=== PATIENT | female | born 1970 | race Caucasian/White ===

== ENCOUNTER 2018-03-22 09:13 | Emergency (ER) | payer BC ==
--- NOTE | 2018-03-22 10:44 | ED ---
Lower Extremity - HPI Summary HPI Summary: Pt. is a 47 y.o male who presents to the ER for a right foot injury that occurred last evening. Pt. state she was walking up stairs when she tripped backwards and all her weight landed onto right heel. Symptoms are mild in severity. Walking makes symptoms worse. Rest makes symptoms better. - History of Current Complaint Chief Complaint: EDExtremityLower Stated Complaint: RT FOOT INJURY Time Seen by Provider: 03/22/18 09:44 Hx Obtained From: Patient Hx Last Menstrual Period: 08/23/15 Pain Intensity: 10 - Allergies/Home Medications Allergies/Adverse Reactions: Allergies Allergy/AdvReac Type Severity Reaction Status Date / Time No Known Allergies Allergy Verified 03/22/18 09:27 PMH/Surg Hx/FS Hx/Imm Hx Previously Healthy: Yes - Cancer History Hx Chemotherapy: No Hx Radiation Therapy: No - Immunization History Immunizations Up to Date: Yes Infectious Disease History: No Infectious Disease History: Denies: Traveled Outside the [place] in Last 30 Days - Family History Family History: NON CONTRIBUTORY - Social History Occupation: Works From/At Home Lives: Alone Alcohol Use: Occasionally Substance Use Type: Reports: None Smoking Status (MU): Never Smoked Tobacco Review of Systems Positive: Other - Right foot pain Neurological: Negative Negative: Weakness, Paresthesia, Numbness All Other Systems Reviewed And Are Negative: Yes Physical Exam Triage Information Reviewed: Yes Vital Signs On Initial Exam: Initial Vitals Temp Pulse Resp BP Pulse Ox 98.3 F 91 16 100/57 98 03/22/18 09:24 03/22/18 09:24 03/22/18 09:24 03/22/18 09:24 03/22/18 09:24 Vital Signs Reviewed: Yes Appearance: Positive: Well-Appearing - Pt. sitting in wheelchair in NAD. Friend present. Skin: Positive: Warm, Dry Head/Face: Positive: Normal Head/Face Inspection Eyes: Positive: Normal Neck: Positive: Supple Musculoskeletal: Positive: Other - Pain on palpation to the right calcaneus. No pain over the base of the 5th metatarsal. No ankle or knee pain on palpation. No wounds. Good pedal pulse. Achilles tendon is intact. Neurological: Positive: Normal, CN Intact II-III Diagnostics - Vital Signs Vital Signs Temp Pulse Resp BP Pulse Ox 03/22/18 10:40 98.3 F 84 18 125/82 96 03/22/18 09:24 98.3 F 91 16 100/57 98 - Laboratory Lab Statement: Any lab studies that have been ordered have been reviewed, and results considered in the medical decision making process. Lower Extremity Course/Dx - Course Course Of Treatment: Pt. presenting for isolated foot injury. Foot xray reviewed by radiologist and is negative for fracture or dislocation. Results discussed. Advised ice and elevation. Tylenol or Motrin for pain as directed. Activity as tolerated. Pt. to f.u with PCP if pain persist. Pt. understands and agrees with plan. - Diagnoses Differential Diagnosis/HQI/PQRI: Positive: Contusion, Fracture (Closed), Sprain Provider Diagnoses: Contusion of heel Discharge - Sign-Out/Discharge Documenting (check all that apply): Patient Departure - Discharge Plan Condition: Good Disposition: HOME Patient Education Materials: Foot Contusion (ED) Referrals: Madai Ruiz NP [Primary Care Provider] - Additional Instructions: Follow up with PCP if pain persist Ice and elevate Tylenol or Motrin for pain as directed - Billing Disposition and Condition Condition: GOOD Disposition: Home
--- NOTE | 2018-03-22 10:53 | RAD ---
INDICATION: Pain at the calcaneus after a fall the previous night COMPARISON: None. TECHNIQUE: 3 views of the right foot were obtained. FINDINGS: The adequately corticated bones are properly aligned. Joint spaces appear maintained. No fracture, dislocation or focal bony abnormality is seen. IMPRESSION: Normal radiograph of the right foot. If the patient's symptoms persist, follow-up imaging is recommended.
[2018-03-22 11:30] VITALS: BP 119/81
== END 2018-03-22 11:15 | disposition home or self-care (01) ==
LOC: ED 09:13
DX: S90.31XA Contusion of right foot, initial encounter (principal); W18.40XA Slipping, tripping and stumbling without falling, unspecified, initial encounter; Y92.9 Unspecified place or not applicable
CPT/HCPCS: 99282